=== PATIENT | female | born 1965 ===

== ENCOUNTER 2018-11-04 11:02 | Outpatient (CLI) | payer OTHER | END 2018-11-04 12:00 | disposition home or self-care (01) | LOC: NUCLEAR 11:02 | DX: I73.9 Peripheral vascular disease, unspecified (principal); E11.65 Type 2 diabetes mellitus with hyperglycemia ==

== ENCOUNTER 2018-11-12 14:33 | Outpatient (CLI) | payer OTHER | END 2018-11-12 14:34 | disposition home or self-care (01) | LOC: SONOGRAMA 14:33 | DX: E04.1 Nontoxic single thyroid nodule (principal) ==

== ENCOUNTER 2024-11-26 14:20 | Outpatient (CLI) | payer OTHER | END 2024-11-26 14:22 | disposition home or self-care (01) | LOC: MAMO-SONO 14:20 | PROVIDERS: ATTEND Obstetrics & Gynecology Maternal & Fetal Medicine | DX: N63 Unspecified lump in breast (principal); Z12.31 Encounter for screening mammogram for malignant neoplasm of breast; N64.4 Mastodynia; N60.11 Diffuse cystic mastopathy of right breast ==

== ENCOUNTER 2025-05-07 07:54 | Outpatient (CLI) | payer OTHER | END 2025-05-07 08:09 | disposition home or self-care (01) | LOC: SONOGRAMA 07:54 | DX: C73 Malignant neoplasm of thyroid gland (principal); E03.4 Atrophy of thyroid (acquired); E03.5 Myxedema coma; E03.9 Hypothyroidism, unspecified ==